=== PATIENT | female | born 1930 | race Caucasian/White ===

== ENCOUNTER → 2017-04-12 | Outpatient (CLI) | payer MEDICARE, BC ==
[~2017-04-12] MED LIST: ACET325 PO; AMLO5; AMLO5 PO; ASPI81CH PO; ATOR10; ATOR10 PO; BENADRYL25 MG PO; BENZ100A PO; BISA10S PR; BUPR100ER PO; CALCAVITD PO; CALCAVITDA PO; CALCIUM CITRATE PO; CARV25; CARV3.125; CEPH500 PO; CIPR500 PO; CITA20; CITA20 PO; CLOB.05TC TP; CLOB.05TO PO; CLOP75; CLOP75 PO; CRANBERRY PLUS1 EACH PO; CRANBERRY250 MG; CRANBERRY250 MG PO; Cardizem Cd180 MG PO; DIAZIDE; DILT120 PO; DIPASPER PO; DOCU100 PO; DOXA2 PO; FURO40 PO; HYDACE5 PO; HYDCHL12.5 PO; HYDROCREAM28.4 GM; Hair, Skin & N1 EACH PO; LEVFLO250 PO; LISI20; LISI20 PO; Lasix20 MG PO; METO25 PO; MULVITMIND PO; MUPIROCIN1 GM; Micro-K10 MEQ PO; NIAC500ER; OLUX100 GM TP; OMEP20ER PO; OMEP40CA12 PO; PANT40 PO; POTCHL10ER PO; POTCHL20ER PO; PROBIOTIC 5 BI1 EACH PO; PROTOPIC; Protopic100 G1 TP; SIMV40 PO; SPIHYD; TOLT2; TRIHYD253A PO; VENL25 PO; VENL75ER; VITD PO; XARELTO10 MG PO; Zithromax250 MG PO; [UNRECOGNIZED DRUG - OTHER]
== END | disposition home or self-care (01) ==
LOC: LAB SHORT 13:30 → PLD 13:30
DX: D48.5 Neoplasm of uncertain behavior of skin (principal)
CPT/HCPCS: 88305

== ENCOUNTER 2018-04-18 21:07 | Inpatient (IN) | payer MEDICARE, BC ==
[~2018-04-18] VITALS: Ht 170.2 cm; Wt 50.6 kg
[~2018-04-18 21:07] MED LIST changes: +Citalopram HBr10 MG PO; -HYDROCREAM28.4 GM; +HYDROCREAM28.4 GM TOP; +MUPI1NAS; -MUPIROCIN1 GM
[2018-04-18 21:51] LABS: BASOPHILS ABSOLUTE AUTO 0.02 K/mm3 (0.00-0.23); BASOPHILS PERCENT AUTO 0 % (0-2); EOSINOPHILS ABSOLUTE AUTO 0.01 K/mm3 (0.00-0.68); EOSINOPHILS PERCENT AUTO 0 % (0-6); Hematocrit 46.7 % (33.0-51.0); Hemoglobin 14.9 g/dL (11.5-16.0); IMMATURE GRAN ABSOLUTE AUTO 0.12 K/mm3 (0.00-0.10); IMMATURE GRAN PERCENT AUTO 1 % (0-1); LYMPHOCYTES ABSOLUTE AUTO 1.06 K/mm3 (0.84-5.20); LYMPHOCYTES PERCENT AUTO 6 % (21-46); MONOCYTES PERCENT AUTO 6 % (4-13); Mean Corpuscular HGB 30.2 pg (26.0-34.0); Mean Corpuscular HGB Conc 31.9 g/dL (31.5-36.5); Mean Corpuscular Volume 95 fL (80-100); Mean Platelet Volume 12.4 fL (9.1-12.4); NEUTROPHILS ABSOLUTE AUTO 14.35 K/mm3 (1.96-9.15); NEUTROPHILS PERCENT AUTO 87 % (41-73); NRBC ABSOLUTE 0.02 K/mm3 (0.00-0.02); NRBC Auto 0.1 /100 WBC (0.0-0.2); Platelet Count 310 K/mm3 (150-400); RDW Coefficient Variation 17.2 % (11.7-14.2); RDW Standard Deviation 59.6 fL (35.1-46.3); Red Blood Cell Count 4.94 M/mm3 (3.80-5.20); White Blood Cell Count 16.56 K/mm3 (4.00-11.30)
[2018-04-18 22:08] LABS: Albumin, Blood 2.3 g/dL (3.4-5.0); Albumin/Globulin Ratio 0.4 (0.8-1.8); Bun/Creatinine Ratio 32.2 (12.0-20.0); Calcium, Blood 9.5 mg/dL (8.5-10.1); Creatinine, Blood 1.15 mg/dL (0.40-1.00); Globulin, Blood 6.1 g/dL (2.2-4.0); Potassium, Blood 3.8 mmol/L (3.5-5.5); Total Protein, Blood 8.4 g/dL (6.4-8.2)
[2018-04-18 23:39] LABS: Source, Urine Clean Catch
[2018-04-18 23:41] LABS: Appearance, Urine Cloudy (Clear); Bilirubin, Urine Neg (Neg); Blood, Urine 5+ (Neg); Color, Urine Yellow (P-Yellow); Glucose Qualitative, Urine Neg (Neg); Ketones, Urine 1+ (Neg); Leukocyte Esterase, Urine 3+ (Neg); Nitrite, Urine Neg (Neg); Protein, Urine 4+ (Neg); Specific Gravity, Urine 1.015 (1.003-1.022); Urobilinogen, Urine NORM (Normal)
[2018-04-18 23:42] LABS: Bacteria Many /hpf; Squamous Epithelial Cells Many /hpf (Few); White Blood Cells, Urine 50-100 /hpf (0-5)
[2018-04-19 04:45] LABS: BASOPHILS ABSOLUTE AUTO 0.01 K/mm3 (0.00-0.23); BASOPHILS PERCENT AUTO 0 % (0-2); EOSINOPHILS ABSOLUTE AUTO 0.02 K/mm3 (0.00-0.68); EOSINOPHILS PERCENT AUTO 0 % (0-6); Hematocrit 41.1 % (33.0-51.0); Hemoglobin 13.1 g/dL (11.5-16.0); IMMATURE GRAN PERCENT AUTO 1 % (0-1); LYMPHOCYTES ABSOLUTE AUTO 0.85 K/mm3 (0.84-5.20); LYMPHOCYTES PERCENT AUTO 6 % (21-46); MONOCYTES ABSOLUTE AUTO 0.83 K/mm3 (0.16-1.47); MONOCYTES PERCENT AUTO 6 % (4-13); Mean Corpuscular HGB 30.5 pg (26.0-34.0); Mean Corpuscular HGB Conc 31.9 g/dL (31.5-36.5); Mean Corpuscular Volume 96 fL (80-100); Mean Platelet Volume 12.4 fL (9.1-12.4); NEUTROPHILS ABSOLUTE AUTO 13.39 K/mm3 (1.96-9.15); NEUTROPHILS PERCENT AUTO 88 % (41-73); Platelet Count 247 K/mm3 (150-400); RDW Coefficient Variation 17.2 % (11.7-14.2); RDW Standard Deviation 60.2 fL (35.1-46.3)
[2018-04-19 05:00] LABS: Bun/Creatinine Ratio 37.6 (12.0-20.0); Calcium, Blood 8.9 mg/dL (8.5-10.1); Creatinine, Blood 1.01 mg/dL (0.40-1.00); Potassium, Blood 2.9 mmol/L (3.5-5.5)
--- NOTE | 2018-04-20 07:21 | NUR ---
ASSUMED CARE OF PATIENT AT APPROXIMATELY 2009 FROM KELI Mera RN. PATIENT ARRIVED TO UNIT VIA STRETCHER AND TRANSFER VIA SLIDE SHEET AND STAFF ASSIST. PATIENT ALERT; NONVERBAL; NODS HEAD TO QUESTIONS OCCASIONALLY; REPORT FROM ED NURSE IS PATIENT FROM ASSISTED AND USES "THICKENED LIQUIDS"; PATIENT TOOK PM PILLS WHOLE IN APPLESAUCE; NECTAR THICKENED WATER IN SPOON. AFIB ON TELE W/ RATE 100-140S; CARDIZEM GTT; OXYGEN SATURATION ABOVE 90% ON ROOM AIR. ONE L NS GIVEN. PATIENT'S RIGHT ARM WHEEPING; REPORTED IV INFILTRATED IN ED BEFORE ARRIVAL. PATIENT TURNED EVERY 2 HOURS; INCONTINENT OF SMEAR ONCE; PRESSURE ULCER TO COCCYX; MEPILEX IN PLACE; PHOTO TAKEN AND PLACED IN CHART. URINARY CATH DRAINING FAITH COLORED URINE. CALL PLACED TO SILVIO BOSS FOR GRAM NEGATIVE RODS IN BLOOD; CURRENTLY ON ZOSYN 3.375; NO NEW ORDERS RECIEVED. PATIENT CURRENTLY RESTING IN BED; CALL LIGHT IN REACH; BED IN LOWEST POSISTION. REPORT GIVEN TO DAYSHIFT RN.
--- NOTE | 2018-04-20 12:35 | NUR ---
pt alok in to see pt. Dr. Valdez came to see him and spoke about hospice, waiting for daughter to come in. no further changes, call light in reach.
--- NOTE | 2018-04-20 14:42 | NUR ---
Spiritual care visit conducted. Patient was lying in bed and minimally responsive when I entered the room. After I introduced myself, I was warmly welcomed by patient's daughter, Kiki. Kiki was very tearful about her mother's condition but also extremely grateful for the time and connection they have shared. I conducted a life/family review of patient's life, eplored both patient's and Kiki's jesús traditions, provided pastoral group counselor and provided companionship. I highlighted the depth of love and care that the family shares together and the paece that the patient's jesús gives to the patient's and the family. Patient's doctor came in so I cut the visit short. Kiki expressed gratitude for the visit.
--- NOTE | 2018-04-20 18:36 | NUR ---
PT HAS BEEN UNRESPONSIVE THIS SHIFT, SHE SMILES WHEN TURNED, SHE HAS BEEN FEBRILE, TYLENOL SUPPOS WAS GIVEN TWICE. FEVER DOWN AT THIS TIME. HAS BEEN TURNED Q2 HRS. PLAN TO GO HOME WITH DAUGHTER ON HOSPICE TOMORROW AFTER HAVING SOME FLUIDS. CALL LIGHT IN REACH. FAMILY AT BEDSIDE.
--- NOTE | 2018-04-20 23:26 | NUR ---
ASSUMED CARE OF PATIENT AT APPROXIMATELY 1915 FROM BRAD Wolf RN. PATIENT OPENS EYES TO VERBAL STIMULUS; NONVERBAL; NODS HEAD TO QUESTIONS OCCASIONALLY; PATIENT ASPIRATION RISK; NOT FOLLOWING COMMANDS AT TIMES; DID DRINK SOME THICKENED LEMON WATER WITH 100% FEEDING ASSISTANCE USING ASP PRECAUTIONS. AFIB ON TELE W/ RATE 100-140S; CARDIZEM GTT; OXYGEN SATURATION ABOVE 90% ON ROOM AIR. FLUIDS INFUSING PER ORDER. PATIENT'S RIGHT ARM WHEEPING LESS COMPARED TO LAST NIGHT; PATIENT TURNED EVERY 2 HOURS; PRESSURE ULCER TO COCCYX; MEPILEX IN PLACE. URINARY CATH DRAINING FAITH COLORED URINE. DAUGHTER IN ROOM WITH PATIENT. PATIENT CURRENTLY SLEEPING IN BED; CALL LIGHT IN REACH; BED IN LOWEST POSISTION. WILL CONTINUE TO MONITOR AND ASSESS UNTIL END OF SHIFT.
[2018-04-21 04:11] LABS: BASOPHILS ABSOLUTE AUTO 0.01 K/mm3 (0.00-0.23); BASOPHILS PERCENT AUTO 0 % (0-2); EOSINOPHILS PERCENT AUTO 0 % (0-6); Hematocrit 37.6 % (33.0-51.0); Hemoglobin 11.5 g/dL (11.5-16.0); IMMATURE GRAN ABSOLUTE AUTO 0.05 K/mm3 (0.00-0.10); IMMATURE GRAN PERCENT AUTO 0 % (0-1); LYMPHOCYTES ABSOLUTE AUTO 0.84 K/mm3 (0.84-5.20); LYMPHOCYTES PERCENT AUTO 7 % (21-46); MONOCYTES ABSOLUTE AUTO 0.46 K/mm3 (0.16-1.47); MONOCYTES PERCENT AUTO 4 % (4-13); Mean Corpuscular HGB 29.9 pg (26.0-34.0); Mean Corpuscular HGB Conc 30.6 g/dL (31.5-36.5); Mean Corpuscular Volume 98 fL (80-100); Mean Platelet Volume 12.8 fL (9.1-12.4); NEUTROPHILS ABSOLUTE AUTO 9.93 K/mm3 (1.96-9.15); NEUTROPHILS PERCENT AUTO 88 % (41-73); Platelet Count 202 K/mm3 (150-400); RDW Coefficient Variation 17.2 % (11.7-14.2); RDW Standard Deviation 61.9 fL (35.1-46.3); Red Blood Cell Count 3.84 M/mm3 (3.80-5.20); White Blood Cell Count 11.29 K/mm3 (4.00-11.30)
[2018-04-21 04:39] LABS: Anion Gap 10 mmol/L (6-16); Blood Urea Nitrogen 35 mg/dL (8-24); Bun/Creatinine Ratio 41.2 (12.0-20.0); CO2, Blood 22 mmol/L (21-32); Calcium, Blood 8.7 mg/dL (8.5-10.1); Chloride, Blood 130 mmol/L (98-108); Creatinine, Blood 0.85 mg/dL (0.40-1.00); Glomerular Filtration Rate >60 (60-); Glucose, Blood 110 mg/dL (70-99); Potassium, Blood 2.4 mmol/L (3.5-5.5)
[2018-04-21 04:48] LABS: Sodium, Blood 162 mmol/L (136-145)
--- NOTE | 2018-04-21 06:25 | NUR ---
PATIENT SLEPT FOR ABOUT TEN HOURS LAST NIGHT. DAUGHTER SLEEPING IN ROOM IN RECLINER; REPORTS PATIENT MORE AWAKE. PATIENT OPENS EYES WHEN STAFF ENTERS ROOMS; SMILES; NODS TO QUESTIONS OCCASIONALLY. DRANK SPOON FULLS OF THICKENED WATER; FEEDER ASSISTANCE NEEDED. IVF FLUIDS CONTINUE PER ORDER. NO OTHER ACUTE CHANGES TO REPORT. WILL CONTINUE TO MONITOR AND ASSESS UNTIL END OF SHIFT.
[2018-04-21] MEDS ORDERED: ACET325 PO (11:22)
[2018-04-21] MEDS ORDERED: LORA.5 PO (11:23)
[2018-04-21] MEDS ORDERED: Bactrim Ds Tab1 EACH PO (11:25)
[2018-04-21] MEDS ORDERED: MORP20L PO (11:25)
--- NOTE | 2018-04-21 13:41 | NUR ---
pt has been discharged to home on hospice, she will be returning with her daughter, iv x2 removed intact, franco will remain with pt. went over discharge instructions with daughter, she verbalized understanding. left via gurney with transport and daughter in attendence, pt has all belongings.
== END 2018-04-21 13:44 | disposition hospice, home (50) | DRG 871 ==
LOC: ER 21:07 → ERHOLD 04-19 00:30 → PCU 04-19 20:15
PROVIDERS: Emergency Medicine; Family Medicine; ADMIT Hospitalist
DX: A41.89 Other specified sepsis (principal); E43 Unspecified severe protein-calorie malnutrition; G92 Toxic encephalopathy; N39.0 Urinary tract infection, site not specified; I50.32 Chronic diastolic (congestive) heart failure; I48.91 Unspecified atrial fibrillation; E87.6 Hypokalemia; E86.0 Dehydration; L89.201 Pressure ulcer of unspecified hip, stage 1; R62.7 Adult failure to thrive; Z66 Do not resuscitate; B96.4 Proteus (mirabilis) (morganii) as the cause of diseases classified elsewhere; E86.9 Volume depletion, unspecified; I11.0 Hypertensive heart disease with heart failure; M81.0 Age-related osteoporosis without current pathological fracture; G30.9 Alzheimer's disease, unspecified; F02.80 Dementia in other diseases classified elsewhere, unspecified severity, without behavioral disturbance, psychotic disturbance, mood disturbance, and anxiety; E78.00 Pure hypercholesterolemia, unspecified; Z68.25 Body mass index [BMI] 25.0-25.9, adult; Z88.6 Allergy status to analgesic agent; Z88.1 Allergy status to other antibiotic agents; Z88.8 Allergy status to other drugs, medicaments and biological substances; Z86.73 Personal history of transient ischemic attack (TIA), and cerebral infarction without residual deficits; Z87.891 Personal history of nicotine dependence
CPT/HCPCS: 36415; 51702; 70450; 71046; 80048; 80053; 81001; 83605; 85025; 87040; 87077; 87086; 87186; 93005; 93010; 96365-59; 96372-59; 96375-59; 96376-59; 99285-25; J1160; J1650; J2543; J3480; J7030; P9612